=== PATIENT | female | born 1975 | race Caucasian/White ===

== ENCOUNTER 2024-03-14 16:26 | Emergency (ER) | payer BC, OTHER ==
[~2024-03-14] VITALS: Ht 165.1 cm; Wt 66.0 kg
[~2024-03-14 16:26] MED LIST: IRON; WITC1MED4
[2024-03-14 16:29] VITALS: BP 109/46; PULSE 66; RESP 18; O2SAT 98; O2SAT 99
[2024-03-14 17:05] LABS: CLARITY URINE CLEAR (CLEAR); COLOR URINE DARK YELLOW (YELLOW); GLUCOSE URINE NEGATIVE (NEGATIVE); KETONES URINE NEGATIVE (NEGATIVE); LEUKOCYTE ESTERASE URINE NEGATIVE (NEGATIVE); NITRITE URINE NEGATIVE (NEGATIVE); OCCULT BLOOD URINE NEGATIVE (NEGATIVE); PH URINE 5.5 (4.5-8.0); PROTEIN URINE NEGATIVE (NEGATIVE); SPECIFIC GRAVITY URINE 1.026 (1.005-1.030); UROBILINOGEN URINE 0.2 E.U./dL (0.2-1.0)
[2024-03-14 17:08] LABS: BASOPHILS % 0.7 % (0.0-2.0); EOSINOPHILS % 1.6 % (0.0-5.0); HEMATOCRIT. 39.9 % (36.0-48.0); HEMOGLOBIN. 13.5 g/dL (12.0-16.0); LYMPHOCYTES % 29.7 % (20.0-50.0); MEAN CORPUSCULAR HEMOGLOBIN 29.9 pg (28.0-32.0); MEAN CORPUSCULAR HGB CONC 33.9 g/dL (31.0-37.0); MEAN CORPUSCULAR VOLUME 88.3 fL (81.0-99.0); MONOCYTES % 4.8 % (2.0-8.0); NEUTROPHILS % 63.2 % (40.0-76.0); PLATELET 243 x1000/uL (130-400); RED BLOOD CELL COUNT 4.52 mill/uL (4.2-5.4); RED CELL DISTRIBUTION WIDTH 13.3 % (11.6-14.6); WHITE BLOOD COUNT 6.2 x1000/uL (4.5-11.0)
[2024-03-14 17:12] LABS: CHLORIDE 107 mEq/L (98-107); SODIUM 140 mEq/L (136-145)
[2024-03-14 17:13] LABS: CALCIUM 9.6 mg/dL (8.7-10.4); CARBON DIOXIDE 25 mEq/L (21-32)
[2024-03-14 17:15] LABS: HCG SCREEN NEGATIVE
[2024-03-14 17:18] LABS: GLUCOSE 105 mg/dL (70-105); UREA NITROGEN BLOOD 15 mg/dL (9-23)
[2024-03-14 17:19] LABS: TROPONIN I HIGH SENSITIVITY 7 ng/L (3.0-34)
[2024-03-14 17:20] LABS: ALANINE AMINOTRANSFERASE 26 IU/L (10-49); ALBUMIN 4.4 g/dL (3.2-4.8); ASPARTATE AMINOTRANSFERASE 25 IU/L (<34); BILIRUBIN TOTAL 0.4 mg/dL (0.1-1.0)
[2024-03-14 17:21] LABS: BILIRUBIN DIRECT < 0.1 mg/dL (<=3.0)
[2024-03-14 22:30] VITALS: TEMP 98.6
[2024-03-14] MEDS: MAGNESIUM/ALUMINUM HYDROXIDE/SIMETHICONE 30ML UDC PO NR (22:30)
[2024-03-14] MEDS: ONDANSETRON HCL 4MG/2ML INJ IM NR (22:30)
[2024-03-14] MEDS: FAMOTIDINE 20MG TABLET PO NR (22:30)
[2024-03-14] MEDS: ACETAMINOPHEN 325MG TABLET PO NR (22:30)
[2024-03-14] MEDS ORDERED: ACET-2708 MT (23:12)
[2024-03-14] MEDS ORDERED: SUCR1TAB MT (23:12)
[2024-03-14] MEDS ORDERED: ONDA4TAB50 MT (23:12)
[2024-03-14] MEDS ORDERED: PANT40TA51 MT (23:12)
== END 2024-03-14 23:20 | disposition home or self-care (01) ==
LOC: ER 16:26
DX: K29.70 Gastritis, unspecified, without bleeding (principal); R10.13 Epigastric pain; Z88.4 Allergy status to anesthetic agent; Z87.891 Personal history of nicotine dependence; Z98.890 Other specified postprocedural states
CPT/HCPCS: 80076; 80048; 81003; 84703; 83690; 85025; 84484; 36415; 93005; 96372; 99284; J2405; Z7610